=== PATIENT | female | born 1955 | race Caucasian/White ===

== ENCOUNTER 2017-09-23 19:38 | Emergency (ER) | payer MEDICAID ==
[2017-09-23 20:11] VITALS: TEMP 98.5
[2017-09-23] MEDS ORDERED: Albuterol-Ipratrop 3 mg / 0.5 (3 ml) UD IH STA (20:41)
[2017-09-23] MEDS ORDERED: Sodium Chloride 0.9% 1,000 ML IV SCH (20:45)
--- NOTE | 2017-09-23 21:03 | ED PDOC ---
Arrival/HPI - General Historian: Patient - History of Present Illness Time/Duration: Prior to Arrival Symptom Onset: Sudden Symptom Course: Unchanged Quality: Aching Severity Level: 8 Activities at Onset: Rest Context: Home - General Chief Complaint: Weakness/Neurological Deficit Time Seen by Provider: 09/23/17 19:54 - History of Present Illness Narrative History of Present Illness (Text): 09/23/17 20:50 Patient is a 61 F with history of hypertension, hyperlipidemia, and pre- diabetes who presents with complaints of not feeling well. Patient is currently fasting for ada and was feeling general malaise. Patient's son thought it was due to her blood pressure which was not checked, so he decided to bring her to the emergency department. Patient states as of late she has been feeling short of breath as well as angina when walking longer distances. Patient states she currently has pain in her left arm, is short of breath, nauseous and has chills. Denies chest pain, palpitations, fever, cough, recent illness, headache , abdominal pain, vomiting, dysuria. PMD: Dr. Dean Past surgical history: denies Family history: hypertension Social history: denies alcohol, tobacco, drug abuse Medications: amlodipine (Pal Schwab) Past Medical History - Provider Review Nursing Documentation Reviewed: Yes - Cardiac Hx Cardiac Disorders: Yes Hx Hypertension: Yes - Pulmonary Hx Respiratory Disorders: No - Neurological Hx Neurological Disorder: No - HEENT Hx HEENT Disorder: No - Renal Hx Renal Disorder: No - Endocrine/Metabolic Hx Endocrine Disorders: Yes Other/Comment: BORDERLINE BLOOD SUGAR - Hematological/Oncological Hx Blood Disorders: No - Integumentary Hx Dermatological Disorder: No - Musculoskeletal/Rheumatological Hx Musculoskeletal Disorders: Yes Hx Osteoporosis: Yes - Gastrointestinal Hx Gastrointestinal Disorders: Yes Hx Gastroesophageal Reflux: Yes - Genitourinary/Gynecological Hx Genitourinary Disorders: Yes Other/Comment: OVERACTIVE BLADDER - Psychiatric Hx Psychophysiologic Disorder: No Hx Substance Use: No Family/Social History - Physician Review Nursing Documentation Reviewed: Yes Family/Social History: Other Smoking Status: Never Smoked Hx Alcohol Use: No Hx Substance Use: No Allergies/Home Meds Allergies/Adverse Reactions: Allergies No Known Allergies Allergy (Verified 09/23/17 20:00) Home Medications: Home Meds Medication Instructions Recorded Confirmed Aspirin [Aspirin Chewable] 81 mg PO DAILY 09/23/17 09/23/17 Calcium Carbonate/Vitamin D3 1 tab PO DAILY 09/23/17 09/23/17 [Oysco 500-Vit D3 200 Tablet] Metoprolol Tartrate [Lopressor] 100 mg PO HS 09/23/17 09/23/17 Ranitidine HCl [Zantac] 150 mg PO HS 09/23/17 09/23/17 Rosuvastatin Calcium [Crestor] 10 mg PO DAILY 09/23/17 09/23/17 Tolterodine [Detrol LA] 4 mg PO DAILY 09/23/17 09/23/17 amLODIPine [Norvasc] 10 mg PO DAILY 09/23/17 09/23/17 Review of Systems - Physician Review All systems were reviewed & negative as marked: Yes - Review of Systems Constitutional: Normal Eyes: Normal ENT: Normal Respiratory: SOB. absent: Cough, Sputum Cardiovascular: absent: Chest Pain, Palpitations Gastrointestinal: Nausea. absent: Abdominal Pain, Vomiting Genitourinary Female: absent: Dysuria Musculoskeletal: Myalgias (left arm). absent: Back Pain Skin: Normal Neurological: Normal. absent: Headache, Dizziness Endocrine: Normal Hemo/Lymphatic: Normal Psychiatric: Normal Physical Exam Vital Signs Reviewed: Yes Temperature: Afebrile Blood Pressure: Normal Pulse: Regular Respiratory Rate: Normal Appearance: Positive for: Well-Appearing, Comfortable Pain Distress: None Mental Status: Positive for: Alert and Oriented X 3 - Systems Exam Head: Present: Atraumatic, Normocephalic Pupils: Present: PERRL Extroacular Muscles: Present: EOMI Conjunctiva: Present: Normal Mouth: Present: Moist Mucous Membranes Neck: Present: Normal Range of Motion Respiratory/Chest: No: Wheezes, Rhonchi Cardiovascular: Present: Regular Rate and Rhythm, Normal S1, S2 Abdomen: No: Tenderness, Normal Bowel Sounds Upper Extremity: Present: Normal Inspection. No: Edema Lower Extremity: Present: Normal Inspection, Edema (non-pitting) Neurological: Present: GCS=15, CN II-XII Intact Skin: Present: Warm, Normal Color Psychiatric: Present: Alert, Oriented x 3, Normal Insight Vital Signs Temp Pulse Resp BP Pulse Ox 09/23/17 23:23 98.5 F 70 18 125/70 99 09/23/17 21:04 60 18 123/66 99 09/23/17 20:04 98.5 F 63 16 118/75 97 Medical Decision Making Re-evaluation Time: 23:15 Reassessment Condition: Re-examined, Improved - Lab Interpretations I have reviewed the lab results: Yes Interpretation: All labs normal - RAD Interpretation Specialty Transformer Assembler: ED Physician - EKG Interpretation Interpreted by ED Physician: Yes Type: 12 lead EKG Comparison: No previous EKG avail. ED Course and Treatment: Patient Seen With Resident: In agreement with resident note which contains more details about the patient. Patient was seen and evaluated with resident. Came up with plan and treatment together. 61 year old female, presents complaining of not feeling well s/p fasting for Ramadan. Plan: -- Labs -- EKG -- Chest X-Ray -- Douneb, IV Fluids, Zofran Inj (Uriel Bustamante) 09/23/17 21:35 CBC, CMP, Trop, EKG, BNP, Lipase, CXR 09/23/17 23:46 Lab results, Chest X-ray reveal no active disease, and EKG normal. Patient instructed to follow up with PMD which she has an appointment to [place] at 11 pm. (Pal Schwab) - Lab Interpretations Lab Results: 09/23/17 21:20 09/23/17 21:20 Lab Results 09/23/17 21:20: PT 10.7, INR 0.94, APTT 28.9 09/23/17 21:20: Sodium 141, Potassium 3.8, Chloride 104, Carbon Dioxide 25, Anion Gap 17, BUN 9, Creatinine 0.5 L, Est GFR ( Amer) > 60, Est GFR (Non -Af Amer) > 60, Random Glucose 88, Calcium 9.6, Phosphorus 3.9, Magnesium 1.8, Total Bilirubin 0.2, AST 24, ALT 25, Alkaline Phosphatase 114, Troponin I < 0.01 , NT-Pro-B Natriuret Pep 33.6, Total Protein 8.4 H, Albumin 4.7, Globulin 3.8, Albumin/Globulin Ratio 1.2, Lipase 114 09/23/17 21:20: WBC 7.3, RBC 5.09, Hgb 12.4, Hct 38.6, MCV 75.8 L, MCH 24.4 L, MCHC 32.1, RDW 14.3, Plt Count 364, MPV 9.6, Gran % 36.1 L, Lymph % (Auto) 52.0 H, Divide % (Auto) 7.5 H, Eos % (Auto) 3.4, Baso % (Auto) 1.0, Gran # 2.65, Lymph # (Auto) 3.8 H, Divide # (Auto) 0.6, Eos # (Auto) 0.3, Baso # (Auto) 0.07 - RAD Interpretation Radiology Orders: 09/23/17 20:40 CHEST PORTABLE [RAD] Stat - Medication Orders Current Medication Orders: Discontinued Medications Albuterol/Ipratropium (Duoneb 3 Mg/0.5 Mg (3 Ml) Ud) 3 ml IH STAT STA Stop: 09/23/17 20:42 Last Admin: 09/23/17 21:25 Dose: 3 ml Sodium Chloride (Sodium Chloride 0.9%) 1,000 mls @ 100 mls/hr IV .Q10H EVELIA Last Admin: 09/23/17 21:25 Dose: 100 mls/hr eMAR Start Stop Document 09/23/17 21:25 HI (Rec: 09/23/17 21:25 CT [id number]) Intravenous Solution Start Date 09/23/17 Start Time 21:25 Sodium Chloride (Sodium Chloride 0.9%) 1,000 mls @ 999 mls/hr IV .Q1H1M STA Stop: 09/23/17 23:18 Last Admin: 09/23/17 22:25 Dose: 999 mls/hr eMAR Start Stop Document 09/23/17 22:25 HI (Rec: 09/23/17 23:04 CT [id number]) Intravenous Solution Start Date 09/23/17 Start Time 22:25 Ondansetron HCl (Zofran Inj) 4 mg IVP STAT STA Stop: 09/23/17 20:42 Last Admin: 09/23/17 21:25 Dose: 4 mg IVP Administration Document 09/23/17 21:25 HI (Rec: 09/23/17 21:25 CT [id number]) Charges for Administration # of IVP Administrations 1 Disposition/Present on Arrival - Present on Arrival Any Indicators Present on Arrival: No History of DVT/PE: No History of Uncontrolled Diabetes: No Urinary Catheter: No History of Decub. Ulcer: No History Surgical Site Infection Following: None - Disposition Have Diagnosis and Disposition been Completed?: Yes Disposition Time: 23:16 Patient Plan: Discharge - Disposition Diagnosis: Dehydration Disposition: HOME/ ROUTINE Condition: GOOD Additional Instructions: Ms. De La Cruz, thank you for letting us take care of you today. You were treated for weakness which was secondary to dehydration. The emergency medical care you received today was directed at your acute symptoms. If you were prescribed any medication, please fill it and take as directed. It may take several days for your symptoms to resolve. Return to the Emergency Department if your symptoms worsen, do not improve, or if you have any other problems. Please contact your doctor or call one of the physicians/clinics you have been referred to that are listed on the Patient Visit Information form that is included in your discharge packet. Bring any paperwork you were given at discharge with you along with any medications you are taking to your follow up visit. Our treatment cannot replace ongoing medical care by a primary care provider (PCP) outside of the emergency department. Thank you for allowing the [facility] team to be part of your care today. If you had an X-Ray or CT scan: A Radiologist will review the ED reading if any change in treatment is needed we will contact you. If you had a blood, urine, or wound culture: It will take several days for the results, if any change in treatment is needed we will contact you. If you had an STI test: It will take 48 hours for the results. Please call after 1 week if you have not heard back. Referrals: Mary Dean DO [Primary Care Provider] - Follow up with primary Forms: Jimdo (Burmese)
[2017-09-23 21:04] VITALS: RESP 18; O2SAT 99
[2017-09-23 21:28] LABS: BASO # 0.07 K/mm3 (0.0-2.0); EOS # 0.3 (0.0-0.7); EOS % 3.4 % (1.5-5.0); GRAN # 2.65 (1.4-6.5); GRAN % 36.1 % (50.0-68.0); HEMOGLOBIN 12.4 g/dL (12.0-16.0); LYMPH # 3.8 (1.2-3.4); MEAN CELL VOLUME 75.8 fl (80.0-105.0); MEAN CORPUSCULAR HEMOGLOBIN 24.4 pg (25.0-35.0); MEAN CORPUSCULAR HGB CONC 32.1 g/dl (31.0-37.0); MEAN PLATELET VOLUME 9.6 fl (7.0-11.0); MONO # 0.6 (0.1-0.6); MONO % 7.5 % (1.0-6.0); RBC 5.09 10^6/uL (3.5-6.1); RED CELL DISTRIBUTION WIDTH 14.3 % (11.5-14.5); WHITE BLOOD COUNT 7.3 10^3/ul (4.5-11.0)
[2017-09-23 21:40] LABS: ALB/GLOB RATIO 1.2 (1.1-1.8); ALBUMIN 4.7 g/dL (3.0-4.8); ALT/SGPT 25 U/L (7-56); AST/SGOT 24 U/L (14-36); BLOOD UREA NITROGEN 9 mg/dL (7-21); CALCIUM 9.6 mg/dL (8.4-10.5); GFR AFRICAN-AMERICAN > 60; GFR NON-AFRICAN AMERICAN > 60; LIPASE 114 U/L (23-300)
[2017-09-23 21:43] LABS: INR 0.94 (0.93-1.08); PARTIAL THROMBOPLASTIN TIME 28.9 Seconds (25.1-36.5); PROTHROMBIN TIME 10.7 SECONDS (9.4-12.5)
[2017-09-23 21:51] LABS: B-TYPE NATRIURETIC PEPTIDE 33.6 pg/mL (0-450); TROPONIN I < 0.01 ng/mL
[2017-09-23] MEDS ORDERED: Sodium Chloride 0.9% 1,000 ML IV STA (22:18)
[2017-09-23 23:46] VITALS: BP 125/70; PULSE 70
--- NOTE | 2017-09-24 08:30 | RAD ---
HISTORY: short of breath on exertion COMPARISON: No prior. FINDINGS: LUNGS: No active pulmonary disease. PLEURA: No significant pleural effusion identified, no pneumothorax apparent. CARDIOVASCULAR: Normal. OSSEOUS STRUCTURES: No significant abnormalities. VISUALIZED UPPER ABDOMEN: Normal. OTHER FINDINGS: None. IMPRESSION: No active disease.
--- NOTE | 2017-09-24 23:48 | CARD ---
APPROVED REPORT EKG Measurement Heart [id number] MD [id number] <Conclusion> Normal sinus rhythm Nonspecific T wave abnormality Abnormal ECG
== END 2017-09-23 23:23 | disposition home or self-care (01) ==
LOC: ED 19:38
DX: E86.0 Dehydration (principal); E78.5 Hyperlipidemia, unspecified; I10 Essential (primary) hypertension; R73.03 Prediabetes
CPT/HCPCS: 71045; 80053; 83690; 83735; 83880; 84100; 84484; 85025; 85610; 85730; 93005; 96374; 99285; J2405; J7030